=== PATIENT | male | born 1985 | race Caucasian/White ===

== ENCOUNTER 2016-12-31 18:19 | Emergency (ER) | payer OTHER ==
[~2016-12-31] VITALS: Ht 182.9 cm; Wt 104.3 kg
[~2016-12-31 18:19] MED LIST: AMITRIPTYLINE100 MG PO; ANDROGEL1.621 TP; BUSPIRONE HCL15 MG PO; BUSPIRONE5 M1 PO; CYMBALTA60 M1 PO; FLA500 PO; FOLIC ACID1 MG PO; GABAPENTIN600 M1 PO; NORCO1 TA2 PO; OMEPRAZOLE DR20 M1 PO; PROCTOSOL-HC2.5% PO; PROZ20 PO; SULFASALAZINE PO; SULFASALAZINE500 M1 PO; TEGRETOL200 MG PO; TRILEPTAL300 MG PO; TYLENOL EXTRA500 M2 PO; TYLENOL WITH CO1 TA2 PO; XANAX0.25 MG PO
[2016-12-31 20:38] LABS: CALCIUM 8.3 mg/dL (8.5-10.1); CHLORIDE SERUM 107 mmol/L (98-107); GFR1 > 60 mL/min; GLUCOSE SERUM 94 mg/dL (74-106); POTASSIUM SERUM 3.3 mmol/L (3.5-5.1); SODIUM SERUM 142 mmol/L (136-145)
[2016-12-31 20:43] LABS: ALBUMIN 3.8 g/dL (3.4-5.0); ALKALINE PHOSPHATASE 83 U/L (46-116); ALT/SGPT 39 U/L (16-63); AMYLASE 36 U/L (25-115); AST/SGOT 21 U/L (15-37); BILIRUBIN TOTAL 0.26 mg/dL (0.20-1.00); LIPASE 95 IU/L (73-393); TOTAL PROTEIN, SERUM 6.4 g/dL (6.4-8.2)
[2016-12-31 20:44] LABS: BASOPHIL % 0.4 % (0-2); PLATELET COUNT 240 x10^3mcL (130-400)
[2016-12-31 22:35] VITALS: BP 111/67
== END 2016-12-31 22:35 | disposition home or self-care (01) ==
LOC: ED 18:19
PROVIDERS: Emergency Medicine
DX: R19.7 Diarrhea, unspecified (principal); E27.1 Primary adrenocortical insufficiency; G50.0 Trigeminal neuralgia; D35.2 Benign neoplasm of pituitary gland
CPT/HCPCS: J7030

== ENCOUNTER 2017-01-16 22:18 | Emergency (ER) | payer OTHER ==
[2017-01-17 01:18] VITALS: BP 154/98
== END 2017-01-17 01:18 | disposition left against medical advice (07) ==
LOC: ED 22:18
DX: Z53.21 Procedure and treatment not carried out due to patient leaving prior to being seen by health care provider (principal)

== ENCOUNTER 2017-01-31 07:32 | Day surgery (SDC) | payer OTHER ==
[~2017-01-31] VITALS: Ht 182.9 cm; Wt 107.0 kg
[2017-01-31 07:38] VITALS: BP 128/71
[2017-01-31 10:21] VITALS: BP 103/74
== END 2017-01-31 10:10 | disposition home or self-care (01) ==
LOC: GI 07:32 → OR 09:30 → GI 10:10
PROVIDERS: Internal Medicine Gastroenterology
PROC: 0DBE8ZX Excision of Large Intestine, Via Natural or Artificial Opening Endoscopic, Diagnostic (ICD-10-PCS; principal; 2017-01-31 08:45)
DX: R19.7 Diarrhea, unspecified (principal); K64.8 Other hemorrhoids
CPT/HCPCS: 45378; J1200; J1610; J2250; J2310; J3010; J3490

== ENCOUNTER 2017-04-03 18:08 | Emergency (ER) | payer OTHER ==
[2017-04-03 19:25] LABS: BASOPHIL % 0.3 % (0-2); PLATELET COUNT 239 x10^3mcL (130-400); RED CELL DISTRIBUTION WIDTH 13.2 % (11.5-14.5)
[2017-04-03 19:46] LABS: CALCIUM 8.4 mg/dL (8.5-10.1); CARBON DIOXIDE 28.9 mmol/L (21-32); CHLORIDE SERUM 102 mmol/L (98-107); CREATININE SERUM 1.1 mg/dL (0.7-1.3); GFR1 > 60 mL/min; GLUCOSE SERUM 92 mg/dL (74-106); POTASSIUM SERUM 3.2 mmol/L (3.5-5.1); SODIUM SERUM 138 mmol/L (136-145)
[2017-04-03 19:49] LABS: ALBUMIN 3.8 g/dL (3.4-5.0); ALKALINE PHOSPHATASE 72 U/L (46-116); ALT/SGPT 22 U/L (16-63); AMYLASE 32 U/L (25-115); AST/SGOT 14 U/L (15-37); BILIRUBIN TOTAL 0.3 mg/dL (0.20-1.00); LACTIC DEHYDROGENASE (LDH) 168 U/L (100-190); LIPASE 105 IU/L (73-393); T4(THYROXINE) 5.1 ug/dL (4.7-13.3); TOTAL PROTEIN, SERUM 6.4 g/dL (6.4-8.2)
[2017-04-03 19:49] LABS: microscopic required? NO
[2017-04-03 19:50] LABS: CHOLESTEROL 239 mg/dL (<200); HDL CHOLESTEROL 70 mg/dL (40-60)
[2017-04-03 19:57] LABS: UA SPECIFIC GRAVITY <=1.005 (1.005-1.035); urine erythrocyte NEGATIVE (NEGATIVE)
[2017-04-03 20:06] LABS: AMPHETAMINE QUAL UR NONE DETECTED (NEG <=1000)
[2017-04-03 20:12] LABS: CK-MB 0.8 ng/mL (0-3.6)
[2017-04-03 21:43] VITALS: BP 136/89
== END 2017-04-03 21:43 | disposition home or self-care (01) ==
LOC: ED 18:08
PROVIDERS: Emergency Medicine
DX: D64.9 Anemia, unspecified (principal); E87.6 Hypokalemia; E78.00 Pure hypercholesterolemia, unspecified; J45.909 Unspecified asthma, uncomplicated; I45.10 Unspecified right bundle-branch block; E27.1 Primary adrenocortical insufficiency; Z98.890 Other specified postprocedural states; Z87.19 Personal history of other diseases of the digestive system
CPT/HCPCS: 83880; G0480; J2930

== ENCOUNTER 2017-12-25 15:12 | Emergency (ER) | payer OTHER ==
[~2017-12-25] VITALS: Ht 185.4 cm; Wt 106.6 kg
[2017-12-25 15:18] VITALS: Ht 185.4 cm; Wt 106.6 kg
[2017-12-25 17:23] VITALS: BP 134/75
== END 2017-12-25 17:23 | disposition home or self-care (01) ==
LOC: ED 15:12
DX: R42 Dizziness and giddiness (principal); J45.909 Unspecified asthma, uncomplicated; D35.2 Benign neoplasm of pituitary gland; K51.90 Ulcerative colitis, unspecified, without complications; K76.0 Fatty (change of) liver, not elsewhere classified; R11.0 Nausea
CPT/HCPCS: J0780; J8597

== ENCOUNTER 2018-05-28 15:19 | Inpatient (IN) | payer OTHER ==
[~2018-05-28] VITALS: Ht 182.9 cm; Wt 107.7 kg
[2018-05-28 16:25] LABS: BASOPHIL % 0.4 % (0-2); PLATELET COUNT 177 x10^3mcL (130-400)
[2018-05-28 16:38] LABS: ALBUMIN 4.1 g/dL (3.4-5.0); ALKALINE PHOSPHATASE 55 U/L (46-116); ALT/SGPT 27 U/L (16-63); AST/SGOT 21 U/L (15-37); BILIRUBIN TOTAL 0.45 mg/dL (0.20-1.00); CARBON DIOXIDE 22.9 mmol/L (21-32); CHLORIDE SERUM 105 mmol/L (98-107); GFR1 > 60 mL/min; GLUCOSE SERUM 106 mg/dL (74-106); LIPASE 95 IU/L (73-393); SODIUM SERUM 133 mmol/L (136-145); TOTAL PROTEIN, SERUM 6.7 g/dL (6.4-8.2)
[2018-05-28 16:39] LABS: POTASSIUM SERUM 2.5 mmol/L (3.5-5.1)
[2018-05-28 16:41] LABS: RED CELL DISTRIBUTION WIDTH 14.8 % (11.5-14.5)
[2018-05-28 17:52] VITALS: BP 139/91
[2018-05-28 21:05] VITALS: BP 122/75
[2018-05-29 05:57] VITALS: BP 115/66
[2018-05-29 06:24] LABS: BASOPHIL % 0.4 % (0-2); PLATELET COUNT 166 x10^3mcL (130-400); RED CELL DISTRIBUTION WIDTH 13.6 % (11.5-14.5)
[2018-05-29 06:35] LABS: ALBUMIN 3.7 g/dL (3.4-5.0); ALKALINE PHOSPHATASE 47 U/L (46-116); ALT/SGPT 25 U/L (16-63); AST/SGOT 16 U/L (15-37); BILIRUBIN TOTAL 0.4 mg/dL (0.20-1.00); CALCIUM 7.7 mg/dL (8.5-10.1); CARBON DIOXIDE 23.4 mmol/L (21-32); CHLORIDE SERUM 109 mmol/L (98-107); CREATININE SERUM 0.8 mg/dL (0.7-1.3); GFR1 > 60 mL/min; GLUCOSE SERUM 92 mg/dL (74-106); MAGNESIUM 2.3 mg/dL (1.8-2.4); PHOSPHOROUS 2.8 mg/dL (2.5-4.9); POTASSIUM SERUM 3.5 mmol/L (3.5-5.1); SODIUM SERUM 142 mmol/L (136-145); TOTAL PROTEIN, SERUM 6.3 g/dL (6.4-8.2)
[2018-05-29 08:04] VITALS: BP 112/69
[2018-05-29 11:59] VITALS: BP 107/64
[2018-05-29 16:40] VITALS: BP 123/76
[2018-05-29 20:27] VITALS: BP 111/81
[2018-05-30 05:05] VITALS: BP 112/72
[2018-05-30 06:33] LABS: ALBUMIN 3.9 g/dL (3.4-5.0); ALKALINE PHOSPHATASE 49 U/L (46-116); ALT/SGPT 26 U/L (16-63); AST/SGOT 19 U/L (15-37); BILIRUBIN TOTAL 0.6 mg/dL (0.20-1.00); CALCIUM 7.9 mg/dL (8.5-10.1); CARBON DIOXIDE 26.2 mmol/L (21-32); CHLORIDE SERUM 106 mmol/L (98-107); GFR1 > 60 mL/min; GLUCOSE SERUM 92 mg/dL (74-106); MAGNESIUM 2.1 mg/dL (1.8-2.4); PHOSPHOROUS 2.9 mg/dL (2.5-4.9); POTASSIUM SERUM 3.7 mmol/L (3.5-5.1); SODIUM SERUM 140 mmol/L (136-145); TOTAL PROTEIN, SERUM 6.5 g/dL (6.4-8.2)
[2018-05-30 06:47] LABS: BASOPHIL % 0.5 % (0-2); PLATELET COUNT 176 x10^3mcL (130-400)
[2018-05-30 07:21] LABS: RED CELL DISTRIBUTION WIDTH 14.6 % (11.5-14.5)
[2018-05-30 08:21] VITALS: BP 122/68
[2018-05-30 12:32] VITALS: BP 118/73
[2018-05-30 16:29] LABS: AMPHETAMINE QUAL UR NONE DETECTED (See below)
[2018-05-30 16:50] VITALS: BP 128/81
[2018-05-30 20:46] VITALS: BP 117/74
[2018-05-31 05:17] VITALS: BP 120/78
[2018-05-31 06:29] LABS: ALBUMIN 3.8 g/dL (3.4-5.0); ALKALINE PHOSPHATASE 47 U/L (46-116); ALT/SGPT 23 U/L (16-63); AST/SGOT 16 U/L (15-37); BILIRUBIN DIRECT 0.16 mg/dL (0.0-0.2); BILIRUBIN TOTAL 0.6 mg/dL (0.20-1.00); CALCIUM 8.1 mg/dL (8.5-10.1); CARBON DIOXIDE 28.5 mmol/L (21-32); CHLORIDE SERUM 104 mmol/L (98-107); CREATININE SERUM 0.8 mg/dL (0.7-1.3); GFR1 > 60 mL/min; GLUCOSE SERUM 86 mg/dL (74-106); POTASSIUM SERUM 3.5 mmol/L (3.5-5.1); SODIUM SERUM 140 mmol/L (136-145); TOTAL PROTEIN, SERUM 6.4 g/dL (6.4-8.2)
[2018-05-31 07:00] LABS: BASOPHIL % 0.3 % (0-2); PLATELET COUNT 163 x10^3mcL (130-400); RED CELL DISTRIBUTION WIDTH 14.4 % (11.5-14.5)
[2018-05-31 08:44] VITALS: BP 129/84
[2018-05-31 12:18] VITALS: BP 117/77
[2018-05-31 16:46] VITALS: BP 124/83
[2018-05-31 20:53] VITALS: BP 126/75; BP 190/65
[2018-06-01 05:32] VITALS: BP 135/85
[2018-06-01 09:09] VITALS: BP 123/76
[2018-06-01 11:41] VITALS: BP 123/76
[2018-06-01 11:44] VITALS: BP 123/76
== END 2018-06-01 12:11 | disposition home or self-care (01) | DRG 392 ==
LOC: ED 15:19 → DU 16:59 → ED 17:37 → DU 17:57
PROVIDERS: Emergency Medicine; Internal Medicine; Internal Medicine Gastroenterology; Internal Medicine Pulmonary Disease
PROC: 0DBF8ZX Excision of Right Large Intestine, Via Natural or Artificial Opening Endoscopic, Diagnostic (ICD-10-PCS; 2018-06-01)
PROC: 0DBL8ZX Excision of Transverse Colon, Via Natural or Artificial Opening Endoscopic, Diagnostic (ICD-10-PCS; principal; 2018-06-01 07:30)
DX: K58.1 Irritable bowel syndrome with constipation (principal); E27.40 Unspecified adrenocortical insufficiency; K64.8 Other hemorrhoids; E87.6 Hypokalemia; F39 Unspecified mood [affective] disorder; E66.9 Obesity, unspecified
CPT/HCPCS: 45378; J1200; J1610; J1720; J2250; J2310; J3010; J3475; J3480; J3490; J7030; J7512; Q0092; Q0162

== ENCOUNTER 2018-06-09 22:03 | Emergency (ER) | payer OTHER ==
[2018-06-09 22:09] VITALS: BP 147/85; Ht 182.9 cm
== END 2018-06-09 22:26 | disposition home or self-care (01) ==
LOC: ED 22:03
DX: Z48.01 Encounter for change or removal of surgical wound dressing (principal); J45.909 Unspecified asthma, uncomplicated; G50.0 Trigeminal neuralgia; E27.1 Primary adrenocortical insufficiency; F41.9 Anxiety disorder, unspecified; Z98.890 Other specified postprocedural states; Z88.8 Allergy status to other drugs, medicaments and biological substances; Z91.018 Allergy to other foods

== ENCOUNTER 2019-03-10 19:57 | Emergency (ER) | payer OTHER ==
[~2019-03-10] VITALS: Ht 182.9 cm; Wt 101.2 kg
[2019-03-10 21:10] LABS: microscopic required? NO
[2019-03-10 21:14] LABS: BASOPHIL % 0.8 % (0-2); PLATELET COUNT 226 x10^3mcL (130-400); RED CELL DISTRIBUTION WIDTH 13.8 % (11.5-14.5)
[2019-03-10 21:15] LABS: urine erythrocyte NEGATIVE (NEGATIVE)
[2019-03-10 21:22] LABS: CALCIUM 8.8 mg/dL (8.5-10.1); CARBON DIOXIDE 23.2 mmol/L (21-32); CHLORIDE SERUM 108 mmol/L (98-107); GFR1 > 60 mL/min; GLUCOSE SERUM 95 mg/dL (74-106); POTASSIUM SERUM 3.6 mmol/L (3.5-5.1); SODIUM SERUM 144 mmol/L (136-145)
[2019-03-10 21:28] LABS: ALBUMIN 4.1 g/dL (3.4-5.0); ALKALINE PHOSPHATASE 68 U/L (46-116); ALT/SGPT 43 U/L (16-63); AST/SGOT 16 U/L (15-37); BILIRUBIN TOTAL 0.29 mg/dL (0.20-1.00); LIPASE 138 IU/L (73-393); TOTAL PROTEIN, SERUM 7.2 g/dL (6.4-8.2)
[2019-03-11 00:53] VITALS: BP 118/74
== END 2019-03-11 00:38 | disposition home or self-care (01) ==
LOC: ED 19:57
PROVIDERS: Emergency Medicine
DX: K62.5 Hemorrhage of anus and rectum (principal); R11.0 Nausea; K51.90 Ulcerative colitis, unspecified, without complications; J45.909 Unspecified asthma, uncomplicated; G50.0 Trigeminal neuralgia; E27.1 Primary adrenocortical insufficiency; F41.9 Anxiety disorder, unspecified; Z98.890 Other specified postprocedural states; Z88.8 Allergy status to other drugs, medicaments and biological substances
CPT/HCPCS: 36415; J1720; Q0162